=== PATIENT | male | born 1970 ===

== ENCOUNTER 2024-02-02 08:11 | Day surgery (SDC) | payer OTHER ==
[2024-01-27 09:28] LABS: PH,URINE 7.5 (5.0-8.0); URINE APPEARANCE Clear; URINE BILIRRUBIN Negative (NEGATIVE); URINE BLOOD Negative; URINE COLOR Yellow; URINE GLUCOSE Negative (NEGATIVE); URINE KETONE Negative (NEGATIVE); URINE LEUKOCYTE Negative; URINE NITRATE Negative; URINE PROTEIN Negative (NEGATIVE)
[2024-01-27 09:42] LABS: HEMOGLOBIN 16.9 g/dL (13-16.00); MEAN CELL VOLUME 86.2 fL (80.0-100.00); MEAN CORPUSCULAR HEMOGLOBIN 29.8 pg (27.00-32.0); MEAN CORPUSCULAR HGB CONC 34.5 g/dl (32.0-36.0); PLATELET COUNT 239 K/uL (150-450); RED BLOOD COUNT 5.68 M/uL (4.00-6.00); RED CELL DISTRIBUTION WIDTH 13.7 % (11.5-14.5)
[2024-01-27 10:01] LABS: INR 1.01; PARTIAL THROMBOPLASTIN TIME 29.1 SECONDS (22.0-34.0)
[2024-01-27 10:12] LABS: URINE BACTERIA 2.5 uL (0.0-1933); URINE EPITHELIAL CELLS 0.3 uL (0.0-38.8); URINE WBC 1.5 uL (0.0-23.2)
[2024-01-27 10:44] LABS: ALBUMIN 4.2 gm/dL (3.4-5.0); BILIRUBIN TOTAL 0.77 mg/dL (0.3-1.2); CALCIUM 9.3 mg/dL (8.5-10.1); CREATININE SERUM 0.88 mg/dL (0.70-1.30); GFR 90.24; GLOBULINA 3.5 G/DL (2.4-3.5); POTASSIUM 4.63 mEq/L (3.5-5.1); TOTAL PROTEIN 7.7 gm/dL (6.4-8.2)
[2024-02-02] MEDS ORDERED: CEFAZOLIN SODIUM 1,000 MG VIAL ONE (09:26)
[2024-02-02] MEDS ORDERED: CEFAZOLIN SODIUM 1,000 MG VIAL IV ONE (11:15)
[2024-02-02] MEDS ORDERED: MORPHINE SULFATE 4 MG/ML VIAL IV ONE (12:20)
== END 2024-02-02 13:45 | disposition home or self-care (01) ==
LOC: CIR.AMB 08:11
PROVIDERS: ATTEND Surgery
DX: K43.6 Other and unspecified ventral hernia with obstruction, without gangrene (principal)
CPT/HCPCS: 49594; C1781